=== PATIENT | male | born 2000 ===

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

== ENCOUNTER 2019-03-09 13:02 | Inpatient (IN) | payer OTHER ==
--- NOTE | 2019-03-09 13:11 | ED ---
Psychiatric Complaint - HPI Summary HPI Summary: Pt is a 18 y/o M presenting to the ED brought in by EMS from [facility] for suicidal ideations. The pt states the first time he had suicidal thoughts was last semester, and over the last two days hes [place], but instead of jumping, he called the [place] crisis line. He reports SI. He denies myalgia or changes in diet and sleep. He denies pmhx or fhx of depression/anxiety, he reports that he smokes and sometimes drinks, but does not use drugs. He denies pmhx of asthma, but does have hx of testicular torsion. - History Of Current Complaint Accompanied By: alone Hx Obtained From: Patient Onset/Duration: Gradual Onset, Lasting Weeks, Still Present Timing: Weeks Severity Initially: Moderate Severity Currently: Moderate Character: Depressed Aggravating Factor(s): Recent Stress Alleviating Factor(s): Nothing Associated Signs And Symptoms: Negative: Sleep Disturbance, Appetite Change Related History: Negative For: Prior Psychiatric Issues Has Suicidal: Reports: Thoughts, With A Plan - Allergies/Home Medications Allergies/Adverse Reactions: Allergies Allergy/AdvReac Type Severity Reaction Status Date / Time No Known Allergies Allergy Verified 08/01/18 01:23 PMH/Surg Hx/FS Hx/Imm Hx Previously Healthy: Yes Respiratory History: Denies: Hx Asthma History: Reports: Other Problems/Disorders - testicular torsion Psychiatric History: Denies: Hx Anxiety, Hx Depression - Family History Known Family History: Negative: Other - anxiety, depression - Social History Occupation: Student Alcohol Use: Occasionally Hx Substance Use: Yes Substance Use Type: Reports: Marijuana - occasional Hx Tobacco Use: Yes Smoking Status (MU): Current Some Day Smoker - occasional, socially Review of Systems Negative: Other - changes in diet/sleep Negative: Myalgia Positive: Depressed All Other Systems Reviewed And Are Negative: Yes Physical Exam - Summary Physical Exam Summary: VITAL SIGNS: Reviewed. GENERAL: Patient is a well-developed and nourished male who is lying comfortable in the stretcher. Patient is not in any acute respiratory distress. HEAD AND FACE: No signs of trauma. No ecchymosis, hematomas or skull depressions. No sinus tenderness. EYES: PERRLA, EOMI x 2, No injected conjunctiva, no nystagmus. EARS: Hearing grossly intact. Ear canals and tympanic membranes are within normal limits. MOUTH: Oropharynx within normal limits. NECK: Supple, trachea is midline, no adenopathy, no JVD, no carotid bruit, no c- spine tenderness, neck with full ROM. CHEST: Symmetric, no tenderness at palpation LUNGS: Clear to auscultation bilaterally. No wheezing or crackles. CVS: Regular rate and rhythm, S1 and S2 present, no murmurs or gallops appreciated. ABDOMEN: Soft, non-tender. No signs of distention. No rebound no guarding, and no masses palpated. Bowel sounds are normal. EXTREMITIES: FROM in all major joints, no edema, no cyanosis or clubbing. NEURO: Alert and oriented x 3. No acute neurological deficits. Speech is normal and follows commands. SKIN: Dry and warm Triage Information Reviewed: Yes Vital Signs Reviewed: Yes Diagnostics - Laboratory Result Diagrams: 03/09/19 13:50 03/09/19 13:51 Lab Statement: Any lab studies that have been ordered have been reviewed, and results considered in the medical decision making process. Course/Dx - Course Assessment/Plan: Blood work w/o a significant abnormality. He is medically cleared. He is awaiting for a MHE. Patient is hemodynamically stable and A+O x 3. Patient was evaluated by Dr. Goodwin and he recommends admission on a voluntary status. - Differential Dx/Clinical Impression Differential Diagnosis/HQI/PQRI: Positive: Depression, Suicidal Ideation Provider Diagnosis: Mood disorder Discharge - Sign-Out/Discharge Documenting (check all that apply): Patient Departure - Discharge Plan Condition: Stable Disposition: [facility]YCHIATRIC FACILITY-[facility] Referrals: [facility] - Lb LOPEZ [Primary Care Provider] - - Billing Disposition and Condition Condition: STABLE Disposition: Psychiatric Facility [facility] - Attestation Statements Document Initiated by Scribe: Yes Documenting Scribe: Izabela Boland Provider For Whom Sulaiman is Documenting (Include Credential): Gurinder Segundo MD. Scribe Attestation: Izabela Morrison scribed for Gurinder Segundo MD. on 03/09/19 at 2055. Scribe Documentation Reviewed: Yes Provider Attestation: The documentation as recorded by the rubyeIzabela accurately reflects the service I personally performed and the decisions made by Gurinder hearn MD. Status of Scribe Document: Viewed
[2019-03-09 14:05] LABS: Urine Appearance Cloudy; Urine Bilirubin Negative (Negative); Urine Blood Negative (Negative); Urine Color Yellow; Urine Glucose Negative (Negative); Urine Ketones Negative (Negative); Urine Nitrite Negative (Negative); Urine Protein Negative (Negative); Urine Urobilinogen Negative (Negative)
[2019-03-09 14:17] LABS: ABS Eosinophils 0.1 10^3/ul (0-0.6); ABS Lymphocytes 1.8 10^3/ul (1.0-4.8); ABS Monocytes 0.6 10^3/ul (0-0.8); ABS Neutrophils 4.3 10^3/ul (1.5-7.7); Hematocrit 44 % (42-52); Hemoglobin 14.8 g/dL (14.0-18.0); Lymphocyte % 26.9 %; Mean Corpuscular HGB Conc 33 g/dL (31-36); Mean Corpuscular Hemoglobin 27 pg (27-31); Mean Corpuscular Volume 81 fL (80-94); Nucleated Red Blood Cells % 0.1; Platelet Count 213 10^3/uL (150-450); Red Blood Count 5.46 10^6 /uL (4.18-5.48); Red Cell Distribution Width 14 % (10.5-15); White Blood Count 6.9 10^3/uL (3.5-10.8)
[2019-03-09 14:50] LABS: Alcohol < 10 mg/dL (<10); Salicylate < 2.50 mg/dL (<30)
[2019-03-09 14:51] LABS: Urine Benzodiazepine Screen None Detected (None Detect); Urine Opiates Screen None Detected (None Detect)
[2019-03-09 14:56] LABS: ALT 20 U/L (7-52); AST 30 U/L (13-39); Acetaminophen < 15 mcg/mL; Albumin 4.4 g/dL (3.2-5.2); Albumin/Globulin Ratio 1.8 (1-3); Alkaline Phosphatase 75 U/L (34-104); Anion Gap 7 mmol/L (2-11); BUN/Creatinine Ratio 11.3 (8-20); Blood Urea Nitrogen 13 mg/dL (6-24); CO2 Carbon Dioxide 28 mmol/L (22-32); Calcium 9.7 mg/dL (8.6-10.3); Chloride 105 mmol/L (101-111); EGFR African American 99.1 (>60); EGFR Non-African American 81.9 (>60); Globulin 2.5 g/dL (2-4); Glucose 92 mg/dL (70-100); Potassium 4.2 mmol/L (3.5-5.0); Sodium 140 mmol/L (135-145); Total Protein 6.9 g/dL (6.4-8.9)
[2019-03-09 15:15] LABS: TSH (Thyroid Stimulating Horm) 0.71 mcIU/mL (0.34-5.60)
[2019-03-10] MEDS ORDERED: Acetaminophen TAB* 325 MG PO PRN (04:56)
[2019-03-10] MEDS ORDERED: Al Hydrox/Mg Hydrox/Simet LIQ* 30 ML UDC PO PRN (04:57)
[2019-03-10] MEDS ORDERED: Nicotine* 2MG (FRUIT FLAVOR) GUM PO PRN (04:58)
[2019-03-10 08:19] LABS: HDL Cholesterol 51.2 mg/dL
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
[2019-03-10] MEDS ORDERED: Sertraline* 25 MG TAB PO SCH (11:00)
[2019-03-10] MEDS: Multivitamins/Minerals TAB PO SCH (12:52)
[2019-03-11] MEDS: Sertraline* 50 MG TAB PO SCH (09:36)
[2019-03-11] MEDS: Multivitamins/Minerals TAB PO SCH (09:36)
--- NOTE | 2019-03-11 09:42 | PN ---
Subjective - Subjective Date of Service: 03/11/19 Service Type: 33826 Hosp care 35 min high complexity Subjective: CC " I am doing better" The patient was admitted yesterday for plans to jump [place] the [place]. He thought about grabbing the officers gun and ending his life. He also thought about provoking the police office into shooting him. Recent stressors include breaking up with a girl friend and doing poorly in school. Per staff report, mother and patient were found cuddling in bed during yesterday. He stated that his goal is to confront why he is here. He reported he doesnt like being here but plans to attend the groups and make the most of it. Objective - General Observations Appearance: Neat Appears Stated Age: Yes Stature: WNL, Thin Posture: WNL Eye Contact: Average Behavior/Activity: WNL - Interaction Observations Attitude Towards Examiner: Cooperative Stated Mood: Dysphoric Affect: Blunted Speech Pattern/Tone: Clear Thought Process: Coherent Perception: WNL Thought Content: Depressive Thought Process: Lethality: Passive Wish Hallucination Type: None Delusion Type: None - Cognitive Function Orientation: A&O x 4 Level of Consciousness: Awake Cognition: WNL - Medication Compliance Cooperative with Inpatient Medication Regimen: Yes - Group Participation Participates in Group Activities: No Assessment - Assessment Merits Inpatient Hospitalization: For Immediate Safety Clinical Impression: 18 year old [place] Student presented with suicidal ideation with plan and intent Plan - Plan Treatment Plan: Name: DYLON PINO Birthdate: 2000 [id number] Plan # Q30. Staff Pass, Computer privileges #Father called to express concern that the environment of the milieu is not therapeutic [phone]. #Allow parents to visit during regular visiting hours # The patient requires inpatient admission at this time to assure safety, receive treatment and work toward stabilization. # Collaboration with Social Work to assist with disposition and after care. # Zoloft 50mg daily. # Tobacco use disorder nicotine patch order placed. # Declined substance abuse resources. Patient uses cannabis as coping mechanism for stress relief. #Family meeting yesterday confirmed no access to guns and medications will be locked up. #MMPI #Tentative Discharge Friday Goals: Safety Plan, increase self awareness Sodium 140 mmol/L (135-145) 03/09/19 13:51 Potassium 4.2 mmol/L (3.5-5.0) 03/09/19 13:51 BUN 13 mg/dL (6-24) 03/09/19 13:51 Creatinine 1.15 mg/dL (0.67-1.17) 03/09/19 13:51 Hemoglobin A1c 5.3 % (4.0-5.6) 03/10/19 07:34 Calcium 9.7 mg/dL (8.6-10.3) 03/09/19 13:51 AST 30 U/L (13-39) 03/09/19 13:51 ALT 20 U/L (7-52) 03/09/19 13:51 Triglycerides 65 mg/dL 03/10/19 07:34 Cholesterol 143 mg/dL 03/10/19 07:34 LDL Cholesterol 79 mg/dL 03/10/19 07:34 Vital Signs Temp Pulse Resp BP Pulse Ox 96.9 F 77 16 123/69 100 03/11/19 07:39 03/11/19 07:39 03/11/19 07:39 03/11/19 07:39 03/11/19 07:39 Continued Medication Management: Start Medication Medications: Current Medications Acetaminophen (Tylenol Tab*) 650 mg PO Q4H PRN PRN Reason: PAIN; OR TEMP >101 Al Hydrox/Mg Hydrox/Simethicone (Maalox Plus*) 30 ml PO Q4H PRN PRN Reason: INDIGESTION Multivitamins/Minerals (Theragran/Minerals Tab*) 1 tab PO DAILY [facility] Last Admin: 03/10/19 12:52 Dose: 1 tab Nicotine Polacrilex (Nicotine Gum*) 2 mg PO Q2H PRN PRN Reason: CRAVING Sertraline HCl (Zoloft*) 50 mg PO DAILY [facility] - Discharge Plan Discharge Plan: Inpatient Hospitalization
--- NOTE | 2019-03-11 11:00 | PN ---
BSU: Group Therapy Note - Service Type Service Type: [id number] Group Psychotherapy - Cognitive Behavioral Group Therapy ( CBT):Patient was attentive and participatory in CBT programming this morning, and remained in good behavioral control. Patient expressed positive insights regarding relevant treatment interventions and goals.
[2019-03-12] MEDS: Sertraline* 50 MG TAB PO SCH (09:18)
[2019-03-12] MEDS: Multivitamins/Minerals TAB PO SCH (09:18)
[2019-03-12 10:20] VITALS: BP 142/71
--- NOTE | 2019-03-12 11:39 | PN ---
BSU: Group Therapy Note - Service Type Service Type: 07616 Group Psychotherapy - Cognitive Behavioral Group Therapy ( CBT):Patient was attentive and participatory in CBT programming this morning, and remained in good behavioral control. Patient expressed positive insights regarding relevant treatment interventions and goals.
--- NOTE | 2019-03-12 13:35 | PN ---
Subjective - Subjective Date of Service: 03/12/19 Service Type: 77141 Hosp care 35 min high complexity Subjective: Nursing Report: Patient was visible on unit, no chemical restraints or PRNs. Slept overnight without incident. He is attending group activities. CC: "I need a change" Patient was seen and evaluated. The family meeting took place in the comfort room. There his father asked about medications and the patient became upset and attempted to leave the room. The patient explained how he is upset with himself. He mentioned when he looks in the mirror he sees a bad student, pot head, athlete, and good friend to others. The patient plans to stop using cannabis after idenitfying how he uses it to cope with stress. He plans to go to the place where he thought about ending his life to try and understand why he would think about doing that, in effort to remind him how cannabis influences him. His parents are in agreement with discharge Friday. The patient reported he feels safe on the unit and is interacting with peers. He reported having an adequate appetite and sleep. The patient reports attending and participating in day groups. Per nursing no behavioral issues or overnight events reported. Patient reported that he is tolerating medications without side effects. Objective - General Observations Appearance: Neat Appears Stated Age: Yes Stature: Thin Posture: WNL Eye Contact: Average Behavior/Activity: WNL - Interaction Observations Attitude Towards Examiner: Cooperative Stated Mood: Dysphoric Affect: Blunted Speech Pattern/Tone: Clear Thought Process: Coherent Perception: WNL Thought Content: WNL Hallucination Type: None Delusion Type: None - Cognitive Function Orientation: A&O x 4 Level of Consciousness: Awake Estimated Intelligence: Normal - Medication Compliance Cooperative with Inpatient Medication Regimen: Yes - Group Participation Participates in Group Activities: Yes Assessment - Assessment Clinical Impression: 18 year old [place] Student presented with suicidal ideation with plan and intent Plan - Plan Treatment Plan: Name: DYLON PINO Birthdate: 2000 [id number] Plan # Q30. Staff Pass, Computer privileges # The patient requires inpatient admission at this time to assure safety, receive treatment and work toward stabilization. # Collaboration with Social Work to assist with disposition and after care. # Zoloft 50mg daily. # Tobacco use disorder nicotine patch order placed. # Declined substance abuse resources. Patient uses cannabis as coping mechanism for stress relief. #Family meeting with father and mother. #MMPI results indicate hypomania #Recommend family therapy after discharge. #Tentative Discharge Friday Goals: Safety Plan, increase self awareness, stop cannabis use Sodium 140 mmol/L (135-145) 03/09/19 13:51 Potassium 4.2 mmol/L (3.5-5.0) 03/09/19 13:51 BUN 13 mg/dL (6-24) 03/09/19 13:51 Creatinine 1.15 mg/dL (0.67-1.17) 03/09/19 13:51 Hemoglobin A1c 5.3 % (4.0-5.6) 03/10/19 07:34 Calcium 9.7 mg/dL (8.6-10.3) 03/09/19 13:51 AST 30 U/L (13-39) 03/09/19 13:51 ALT 20 U/L (7-52) 03/09/19 13:51 Triglycerides 65 mg/dL 03/10/19 07:34 Cholesterol 143 mg/dL 03/10/19 07:34 LDL Cholesterol 79 mg/dL 03/10/19 07:34 Vital Signs Temp Pulse Resp BP Pulse Ox 98.6 F 86 16 142/71 100 03/12/19 08:01 03/12/19 08:01 03/12/19 08:01 03/12/19 08:01 03/12/19 08:01 Continued Medication Management: Continue Outpt Medication Medications: Current Medications Acetaminophen (Tylenol Tab*) 650 mg PO Q4H PRN PRN Reason: PAIN; OR TEMP >101 Al Hydrox/Mg Hydrox/Simethicone (Maalox Plus*) 30 ml PO Q4H PRN PRN Reason: INDIGESTION Multivitamins/Minerals (Theragran/Minerals Tab*) 1 tab PO DAILY [facility] Last Admin: 03/12/19 09:18 Dose: 1 tab Nicotine Polacrilex (Nicotine Gum*) 2 mg PO Q2H PRN PRN Reason: CRAVING Sertraline HCl (Zoloft*) 50 mg PO DAILY [facility] Last Admin: 03/12/19 09:18 Dose: 50 mg - Discharge Plan Discharge Plan: Inpatient Hospitalization
--- NOTE | 2019-03-12 15:34 | CONS ---
PSYCHOLOGICAL REPORT: DATE OF CONSULTATION: 03/12/19 PROCEDURE CODE: [id number]. REASON FOR REFERRAL: Hung was referred for personality testing secondary to concerns regarding impulsivity and lethality as well as concerns regarding depression. Hung had expressed suicidal thoughts characterized by potentially lethal means including jumping into a gorge as well as thoughts of trying to take a gifts officer's weapon from him and/or effect suicide by being shot by the police. TEST ADMINISTERED: Hung completed the [place] Multiphasic Personality Inventory-2 (MMPI-2), and was given feedback in individual conversation. He has also been seen by this speech writer in the context of cognitive behavioral group psychotherapies led by this speech writer consistently during his stay here. 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 He describes originally coming to college with the intention of engaging in premed course work, but has since expressed more of an interest in research and academics. Although he describes good adjustment to [employer], he expresses ongoing difficulties in family dynamics as well as both remote and recent social problems at [employer] associated with unsuccessfully pledging or rushing various fraternities. However, he describes better adjustment after he joined the [employer] team and describes being unconcerned with admittance to various social orders. Of some concern, he describes some difficulties at the aforementioned [place] opportunities at [employer], apparently engaging in some binge drinking and then difficulties in recalling what happened. Moreover, he describes difficulties in family dynamics, describing how "my parents should have " and then went to detail about a particular incident last when he was home where his father became intoxicated at a family friend's dinner and then had expressed what sounds to be homicidal thoughts towards Hung's sister. Hung responded to this by then threatening to kill his father. However, remarkably, he describes having a close relationship with his father who he reports confided in more so than his mother. Concerns with boundaries have been observed by this speech writer as well as staff as his mother is very physically affectionate with Hung to the point of raising concerns. Hung is well engaged both in individual and group efforts while remaining on the inpatient unit. He is compliant with recommendations regarding medications as well as adherence to unit routine and policies. He denies experiencing any manic or hypomanic symptoms, endorsing reasonable sleep patterns, and denied any episodic experiences which would be indicative of a hypomanic condition. He describes stress in terms of taking 21 credit hours at [employer] as well as having had a breakup in fairly recent months. Moreover, he identifies family dynamics as a pressing stressor. TEST RESULTS: Hung provides what is felt to be a valid protocol on this administration of the MMPI-2, despite low elevation occurring on the FB scale (T =70). He elevates the neurotic triad between T-scores of 70 and 75 which also is descriptive of his elevations on the interpersonal relatedness scales including hypomania scale. Persons who have similar profiles may endorse some difficulties with cynical and pessimistic outlook in life which buttresses problems with depression. Moreover, persons who elevate the neurotic triad are thought to utilize repression as a primary coping mechanism commonly and they tend to internalize negative emotional experiences which are then expressed often through headaches, stomach problems, and back issues. Hung's elevations on the interpersonal scales are descriptive of, in this case, a normal person who does not experience psychosis, but is endorsing difficulties in social domain of function. Although he describes having good supports in terms of friends at school, there obviously is some historical conflict in terms of problems with being admitted to fraternities and subsequent resentment and anger about the process. Feedback with Hung emphasized concerns regarding the impulsive behaviors which especially in this case were expressed through lethal means in regards to jumping or shooting. IMPRESSIONS AND RECOMMENDATIONS: Hung is an intensely related young man who is very sincere and authentic in seeking help and direction. He engages in a thoughtful and empathetic fashion with both staff and peers and is well related. He reliably denies hypomanic episodes or experiences and instead discussion addressing impulsivity seemed to resonate with him. Ongoing concerns are finding an effective form with which to address family dynamics which hopefully can begin in earnest when he returns home for this summer after completion of this semester in the coming weeks. Hung impresses as a very good candidate to benefit from insight-oriented psychotherapies in this regard and currently impresses as being open to engaging in the process. He does endorse some very historical trama- related events such as corporal punishment, but denies any recent difficulties other than the aforementioned problems pledging fraternities. Hung presently spontaneously expresses prosocial goals and interests and concerns regarding lethality continued to diminish. [id number]/[facility] #: [id number] GABY
[2019-03-13] MEDS: Multivitamins/Minerals TAB PO SCH (13:29)
[2019-03-13] MEDS: Sertraline* 50 MG TAB PO SCH (13:29)
--- NOTE | 2019-03-13 13:52 | PN ---
Subjective - Subjective Date of Service: 03/13/19 Service Type: 84239 Hosp care 15 min low complexity Subjective: Dylon is seen in weekend coverage for Dr. Holt. The patient is in his room with a visiting friend. He appears to be in good spirits and tells me that he is optimistic about a potential discharge on Friday to his home in [place]. He inquires about using his laptop on the unit, which I inform him that Dr. Holt has already allowed. He states that he did not take his sertraline this morning. "I really don't think I need it. I just need to fix what's in here" pointing to his heart. He denies SI and appears future-oriented. Objective - General Observations Appearance: Well Groomed Appears Stated Age: Yes Stature: WNL Posture: WNL Eye Contact: Average Behavior/Activity: WNL - Interaction Observations Attitude Towards Examiner: Cooperative Stated Mood: Euthymic Affect: Full Speech Pattern/Tone: Clear Thought Process: Coherent Perception: WNL Thought Content: WNL Hallucination Type: None Delusion Type: None - Cognitive Function Orientation: A&O x 4 Level of Consciousness: Awake Cognition: WNL Estimated Intelligence: Normal Insight: WNL Judgment Within Normal Limits: Yes - Medication Compliance Cooperative with Inpatient Medication Regimen: No - Group Participation Participates in Group Activities: Yes Assessment - Assessment Merits Inpatient Hospitalization: Consolidate Improvements, Pending Safe DC Plan Inpatient DSM-V Dx: F32.9 Clinical Impression: 18 year old [place] Student presented with suicidal ideation with plan and intent BSU: Problem List - Patient Problems (1) MDD (major depressive disorder), single episode Current Visit: Yes Status: Acute Priority: Medium Code(s): F32.9 - MAJOR DEPRESSIVE DISORDER, SINGLE EPISODE, UNSPECIFIED SNOMED Code(s): 91120785 Plan - Plan Treatment Plan: Name: DYLON PINO Birthdate: 2000 [id number] Plan # Q30. Staff Pass, Computer privileges # The patient requires inpatient admission at this time to assure safety, receive treatment and work toward stabilization. # Collaboration with Social Work to assist with disposition and after care. # Zoloft 50mg daily. # Tobacco use disorder nicotine patch order placed. # Declined substance abuse resources. Patient uses cannabis as coping mechanism for stress relief. #Family meeting with father and mother. #MMPI results indicate hypomania #Recommend family therapy after discharge. #Tentative Discharge Friday Goals: Safety Plan, increase self awareness, stop cannabis use Sodium 140 mmol/L (135-145) 03/09/19 13:51 Potassium 4.2 mmol/L (3.5-5.0) 03/09/19 13:51 BUN 13 mg/dL (6-24) 03/09/19 13:51 Creatinine 1.15 mg/dL (0.67-1.17) 03/09/19 13:51 Hemoglobin A1c 5.3 % (4.0-5.6) 03/10/19 07:34 Calcium 9.7 mg/dL (8.6-10.3) 03/09/19 13:51 AST 30 U/L (13-39) 03/09/19 13:51 ALT 20 U/L (7-52) 03/09/19 13:51 Triglycerides 65 mg/dL 03/10/19 07:34 Cholesterol 143 mg/dL 03/10/19 07:34 LDL Cholesterol 79 mg/dL 03/10/19 07:34 Vital Signs Temp Pulse Resp BP Pulse Ox 98.6 F 86 16 142/71 100 03/12/19 08:01 03/12/19 08:01 03/12/19 08:01 03/12/19 08:01 03/12/19 08:01 Continued Medication Management: Start Medication Medications: Current Medications Acetaminophen (Tylenol Tab*) 650 mg PO Q4H PRN PRN Reason: PAIN; OR TEMP >101 Al Hydrox/Mg Hydrox/Simethicone (Maalox Plus*) 30 ml PO Q4H PRN PRN Reason: INDIGESTION Multivitamins/Minerals (Theragran/Minerals Tab*) 1 tab PO DAILY [facility] Last Admin: 03/13/19 13:29 Dose: Not Given Nicotine Polacrilex (Nicotine Gum*) 2 mg PO Q2H PRN PRN Reason: CRAVING Sertraline HCl (Zoloft*) 50 mg PO DAILY [facility] Last Admin: 03/13/19 13:29 Dose: Not Given - Discharge Plan Discharge Plan: Outpatient Follow Up
[2019-03-14] MEDS: Multivitamins/Minerals TAB PO SCH (09:09)
[2019-03-14] MEDS: Sertraline* 50 MG TAB PO SCH (09:09)
[2019-03-15] MEDS: Multivitamins/Minerals TAB PO SCH (10:09)
[2019-03-15] MEDS: Sertraline* 50 MG TAB PO SCH (10:09)
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
== END 2019-03-15 12:05 | disposition home or self-care (01) | DRG 885 ==
LOC: ED 13:02 → BSU 21:22
PROVIDERS: ADMIT Psychiatry & Neurology Psychiatry; ATTEND Psychiatry & Neurology Psychiatry
DX: F32.2 Major depressive disorder, single episode, severe without psychotic features (principal); R45.851 Suicidal ideations; F12.90 Cannabis use, unspecified, uncomplicated; F17.210 Nicotine dependence, cigarettes, uncomplicated; Z81.8 Family history of other mental and behavioral disorders
CPT/HCPCS: 36415; 80053; 80061; 80307; 80320; 80329; 81003; 83036; 84443; 85025; 90853; 96130; 99222; 99231; 99233; 99238; 99284; A9270-GY; G0480